=== PATIENT | male | born 1955 | race Caucasian/White ===

== ENCOUNTER 2017-06-10 15:32 | Outpatient (CLI) ==
[2016-07-21 09:08] VITALS: BMI 23.7
[2017-06-10 16:21] LABS: BASOPHILS % (AUTO) 0.5 % (0.0-3.0); EOSINOPHILS # (AUTO) 0.1 K/ul (0.0-0.7); HEMATOCRIT 43.6 % (42.0-52.0); HEMOGLOBIN 14.6 g/dl (14.0-18.0); IMMATURE GRANULOCYTE % (AUTO) 0.6 % (0.0-5.0); LYMPHOCYTES # (AUTO) 2.1 K/uL (0.60-3.4); LYMPHOCYTES % (AUTO) 26.3 (10.0-50.0); MEAN CORPUSCULAR HEMOGLOBIN 30.4 pg (27.0-31.0); MEAN CORPUSCULAR HGB CONC 33.5 (31.8-35.4); MEAN CORPUSCULAR VOLUME 90.6 fl (80.0-94.0); MONOCYTES # (AUTO) 0.6 K/uL (0.4-2.0); MONOCYTES % (AUTO) 7.3 (0-10); NEUTROPHILS # (AUTO) 5.2 K/ul (2.0-6.9); NEUTROPHILS % (AUTO) 64.3; PLATELET COUNT 294 10^3/uL (140-440); RED BLOOD COUNT 4.81 10^6/ul (4.70-6.10); WHITE BLOOD COUNT 8.03 K/ul (4.2-10.2)
[2017-06-10 16:54] LABS: ALBUMIN 4.3 g/dL (3.4-5.0); ALBUMIN/GLOBULIN RATIO 1.26; ANION GAP 14.4; BILIRUBIN,TOTAL 0.26 mg/dL (0.00-1.20); BUN/CREATININE RATIO 14.45; CALCIUM 9.9 mg/dL (8.2-10.2); CREATININE 0.83 mg/dL (0.60-1.10); POTASSIUM 4.4 mmol/L (3.5-5.1); TOTAL PROTEIN 7.7 g/dL (5.8-8.1)
== END 2017-06-10 15:33 | disposition home or self-care (01) ==
LOC: LAB 15:32
PROVIDERS: ATTEND Emergency Medicine
DX: I10 Essential (primary) hypertension (principal)
CPT/HCPCS: 36415; 80053; 80061; 84443; 85025

== ENCOUNTER 2018-05-21 12:14 | Outpatient (CLI) ==
[2016-07-21 09:08] VITALS: BMI 23.7
== END 2018-05-21 12:15 | disposition home or self-care (01) ==
LOC: RHC-LAB 12:14
PROVIDERS: ATTEND Emergency Medicine
DX: E78.5 Hyperlipidemia, unspecified (principal); I10 Essential (primary) hypertension
CPT/HCPCS: 36415; 80053; 80061; 84443; 85025

== ENCOUNTER 2018-12-01 09:21 | Outpatient (CLI) ==
[2016-07-21 09:08] VITALS: BMI 23.7
== END 2018-12-01 09:22 | disposition home or self-care (01) ==
LOC: LAB 09:21
PROVIDERS: ATTEND Nurse Practitioner Family
DX: E78.5 Hyperlipidemia, unspecified (principal); Z12.5 Encounter for screening for malignant neoplasm of prostate
CPT/HCPCS: 36415; 80053; 80061

== ENCOUNTER 2019-03-28 09:00 | Emergency (ER) ==
[2019-03-28 09:08] VITALS: BP 129/85; TEMP 98; BMI 23.6
--- NOTE | 2019-03-28 10:07 | CT ---
EXAM: CT of the cervical spine without contrast History: Cervical radiculopathy, left neck pain radiating to the left upper extremity. Technique: Multiplanar CT images through the cervical spine were obtained without the administration of IV contrast Findings: There is paraseptal emphysema seen within the upper lungs. The visualized airway remains patent. No acute fracture or subluxation of the cervical spine. No prevertebral soft tissue swelling. Prede ntal space is not widened. Reversal of the normal cervical lordosis. Moderate to severe disc space narrowing at C6-7 with endplate sclerosis and osteophyte formation. Moderate disc space narrowing at C5-6 and C4-5 with endplate sclerosis and osteophyte formation. C2-3: No significant bony central canal stenosis or bony neural foraminal narrowing. C3-4: No significant bony central canal stenosis. Moderate bilateral bony neural foraminal narrowin g secondary to uncovertebral and facet hypertrophy. C4-5: Right paracentral posterior disc osteophyte complex with mild to moderate central canal stenos is. Moderate to severe right and moderate left bony neural foraminal narrowing secondary to uncovert ebral and facet hypertrophy. C5-6: Posterior disc osteophyte complex with mild central canal stenosis. Moderate to severe right greater than left bilateral bony neural foraminal narrowing secondary to uncovertebral and facet hype rtrophy. Questionable disc extrusion within the left lateral recess. C6-7: Posterior disc osteophyte complex with mild central canal stenosis. Severe bilateral bony shaquille ral foraminal narrowing secondary to uncovertebral and facet hypertrophy. Impression: 1. No acute osseous abnormality of the cervical spine. 2. Degenerative changes with level by level analysis as detailed above. Questionable disc extrusion within the left lateral recess at C5-6. Recommend correlation with MRI.
--- NOTE | 2019-03-28 10:10 | CT ---
EXAM: CT left shoulder without contrast HISTORY: Fall, pain COMPARISON: None TECHNIQUE: CT left shoulder performed without intravenous contrast. Coronal and sagittal reformatte d images obtained. FINDINGS: No fracture or dislocation. Mild osteoarthritis acromioclavicular joint with joint space narrowing. Mild osteoarthritis glenohumeral joint with joint space narrowing. Degenerative change i n the spine. No focal soft tissue abnormality. IMPRESSION: 1. No fracture or dislocation. 2. Mild osteoarthritis.
--- NOTE | 2019-03-28 11:04 | ED.PDOC ---
General ED Provider: Dr. MARIELLA YUAN Chief Complaint: Shoulder Pain/Injury Stated Complaint: left arm pain chronic weeks with increase pain with arm movements Time Seen by Physician: 09:00 (unilateral issue no trauma ) Mode of Arrival: Walk-In Information Source: Patient Exam Limitations: No limitations Primary Care Provider: NGA BAILON Referred to ED by: Other (seen with jeanie at al times ) Nursing and Triage Documentation Reviewed and Agree: Yes Does patient meet sepsis criteria?: No System Inflammatory Response Syndrome: Not Applicable Sepsis Protocol: For patient's 13 years and over: Temp is 96.8 and below OR 101 and greater Pulse >90 BPM Resp >20/minute Acutely Altered Mental Status Are patient's symptoms suggestive of a new infection, such as: -Pneumonia -Skin, Soft Tissue -Endocarditis -UTI -Bone, Joint Infection -Implantable Device -Acute Abdominal Infection -Wound Infection -Meningitis -Blood Stream Catheter Infection -Unknown Musculoskeletal Complaint Exam - Upper Extremity Complaint/Exam Location of Pain: Reports: Left, Shoulder, Arm, Forearm Mechanism of Injury: Reports: No known trauma Onset/Duration: 21 days Symptoms Are: Still present Timing: Constant (with movements of the involved ext) Initial Severity: Moderate Current Severity: Mild Location: Reports: Discrete Character: Reports: Aching, Spasmodic Aggravating: Reports: Movement, Lifting, Flexion, Extension, Internal rotation, External rotation, Abduction Alleviating: Reports: None Review of Systems - Review Of Systems Constitutional: Reports: No symptoms Eyes: Reports: No symptoms Ears, Nose, Mouth, Throat: Reports: No symptoms Respiratory: Reports: No symptoms Cardiac: Reports: No symptoms. Denies: Chest pain GI: Reports: No symptoms : Reports: No symptoms Musculoskeletal: Reports: Joint pain (left shoulder ), Other (left arm) Skin: Reports: No symptoms Neurological: Reports: No symptoms Endocrine: Reports: No symptoms Hematologic/Lymphatic: Reports: No symptoms All Other Systems: Reviewed and Negative Past Medical History - Past Medical History Previously Healthy: Yes Endocrine: Reports: None Cardiovascular: Reports: None Respiratory: Reports: None Hematological: Reports: None Gastrointestinal: Reports: None Genitourinary: Reports: None Neuro/Psych: Reports: None Musculoskeletal: Reports: None Cancer: Reports: None - Surgical History General Surgical History: Reports: None - Family History Family History: Reports: None - Social History Smoking Status: Current every day smoker, Light tobacco smoker Hx Substance Use: No Alcohol Screening: None - Immunizations Tetanus Shot up to Date: Yes Physical Exam - Physical Exam Appearance: Well-appearing, No pain distress, Well-nourished Eyes: RANDOLPH, EOMI, Conjunctiva clear ENT: Ears normal, Nose normal, Oropharynx normal Respiratory: Airway patent, Breath sounds clear, Breath sounds equal, Respirations nonlabored Cardiovascular: RRR, Pulses normal, No rub, No murmur GI/: Soft, Nontender, No masses, Bowel sounds normal, No Organomegaly Musculoskeletal: Limited ROM (left arm cant raise arm above shoulder ) Skin: Warm, Dry, Normal color Neurological: Sensation intact, Motor intact, Reflexes intact, Cranial nerves intact, Alert, Oriented Psychiatric: Affect appropriate, Mood appropriate Critical Care Note - Critical Care Note Total Time (mins): 0 Course - Course Orders, Labs, Meds: Orders Category Date Time Status CT CERVICAL SPINE W/O CONTRAST Stat RADS 03/28/19 09:[address] SHOULDER LEFT W/O CONTRAST Stat RADS 03/28/19 09:16 Completed Vital Signs: Temp Pulse Resp BP Pulse Ox 03/28/19 09:00 98.0 F 82 20 129/85 98 Departure - Departure Time of Disposition: 11:08 Disposition: HOME SELF-CARE Discharge Problem: Shoulder pain, Injury of shoulder region Instructions: Shoulder Pain (ED), Rotator Cuff Injury (ED), Rotator Cuff Tendinitis (ED) Condition: Good Pt referred to PMD for follow-up: Yes IPMP verified?: No Additional Instructions: Please call your Family Physician as soon as possible to schedule a follow-up appointment.must have an M.R.I of shoulder Allergies/Adverse Reactions: Allergies No Known Allergies Allergy (Unverified 03/28/19 09:15) Disposition Discussed With: Patient
== END 2019-03-28 11:18 | disposition home or self-care (01) ==
LOC: ED 09:00
DX: M25.512 Pain in left shoulder (principal); M79.622 Pain in left upper arm; S49.92XA Unspecified injury of left shoulder and upper arm, initial encounter
CPT/HCPCS: 99282